=== PATIENT | male | born 1980 | race Caucasian/White ===

== ENCOUNTER 2025-01-25 11:04 | Emergency (ER) | payer BC, SELFPAY ==
[2025-01-25 11:09] VITALS: BP 124/87
[2025-01-25 11:27] LABS: Hematocrit 43.0 % (39.0-52.0); Hemoglobin 14.7 g/dL (13.0-18.0); Mean Corp Hgb Conc. 34.2 g/dL (33.0-37.0); Mean Corpuscular Volume 88.1 fL (80.0-94.0); Nucleated Red Blood Cells % 0 % (-); Platelet Count 260 10^3/uL (130-400); Red Cell Dist. Width 12.3 % (11.5-14.5)
[2025-01-25 11:41] LABS: ALT (SGPT) 21 U/L (0-50); AST (SGOT) 21 U/L (17-59); Albumin 4.9 g/dl (3.5-5.0); Alkaline Phosphatase 55 U/L (38-126); Blood Urea Nitrogen 16 mg/dl (9-20); Calcium 9.6 mg/dl (8.4-10.2); Carbon Dioxide 32 mmol/L (22-30); Chloride 97 mmol/L (98-107); Glucose 92 mg/dl (70-99); Potassium 4.1 mmol/L (3.5-5.1); Sodium 135 mmol/L (135-145); Total Protein 7.6 g/dl (6.3-8.2); eGFR > 60.00
[2025-01-25 12:05] LABS: Urine Character Clear (Clear)
--- NOTE | 2025-01-25 12:39 | ED.GENMED ---
History of Present Illness
General
Chief Complaint: Flank Pain
Source: patient
Exam Limitations: none
Time Seen by Provider: 01/25/25 12:34
History of Present Illness
History of Present Illness:
See MDM
Past History
Past History
ED Past Medical History: Other (Kidney stone)
ED Past Surgical History: None
Social History
Tobacco: Non-smoker
Alcohol: None
Drug: None
Personal:
Living: with family
Employment: Employed
Family History
Family History: Other (kidney stone)
Phy Exam
Physical Exam
Physical Exam:
See MDM
Course
Orders/Labs/Results
Orders:
Orders
01/25/25 11:17
Complete Blood Count/With Diff Urgent
Comprehensive Metabolic Panel Urgent
01/25/25 11:43
UA [Urinalysis] Urgent
Date Specimen was Collected: 01/25/25
Time Specimen was Collected: 11:42
01/25/25 12:39
CT Abd/pel Without Iv Or Oral Urgent
Comment:
Reason For Exam: R flank pain
Abnormal Lab Results
01/25/25
11:17
Chloride 97 L mmol/L
(98-107)
Carbon Dioxide 32 H mmol/L
(22-30)
01/25/25 11:17
01/25/25 11:17
Vital Signs
Initial and Last Documented VS:
Initial Vital Signs
Temp Pulse Resp BP Pulse Ox
98.1 F 78 18 124/87 97
01/25/25 11:09 01/25/25 11:09 01/25/25 11:09 01/25/25 11:09 01/25/25 11:09
Last Documented Vital Signs
Temp Pulse Resp BP Pulse Ox
98.1 F 78 18 124/87 97
01/25/25 11:09 01/25/25 11:09 01/25/25 11:09 01/25/25 11:01/25/25 12:41
MDM/Problems Addressed
Differential Diagnosis Includes:
Note:
CHIEF COMPLAINT(S)
Flank pain.
HISTORY OF PRESENT ILLNESS
The patient is a 44-year-old male presenting with flank pain. The patient reported the onset of pain occurring suddenly this morning, noting that prior to the onset, he felt relatively well. The pain became progressively noticeable throughout the
day, but he described it as less severe compared to previous episodes where he was 'doubled over.' No significant pressure was noted. He has a history of similar pain episodes before, which resolved without intervention. The patient denied any
nausea. No prior abdominal surgeries were reported.
PHYSICAL EXAM
General: Alert, no acute distress.
Skin: Warm, dry.
Head: Normocephalic, atraumatic
Neck: Appears supple, trachea midline.
Eyes, Ears, Nose, Mouth, and Throat: Moist mucous membranes
Cardiovascular: No signs of cyanosis
Respiratory: Respirations are non-labored.
Abdomen: Non-distended. No CVA tenderness noted
Musculoskeletal: No deformities
Neurological: No focal neurological deficit observed.
Psychiatric: Cooperative, appropriate mood and affect.
EXTERNAL RECORDS REVIEWED
The patients blood work and urinalysis were reviewed. The results were reportedly normal.
PLAN
The plan includes conducting a CT scan to evaluate the size and location of a suspected kidney stone and measure any associated swelling. Pain management will be considered based on the CT findings and patients self-reported pain levels. The
expectation is for resolution similar to previous episodes, without the need for surgical intervention.
DIFFERENTIAL DIAGNOSIS
The Differential Diagnosis includes, in no particular order and is not limited to:
- Nephrolithiasis (Kidney stone)
- Pyelonephritis
- Renal colic
- Urinary tract infection
- Musculoskeletal pain
- Appendicitis
- Abdominal aortic aneurysm
- Gastrointestinal obstruction
- Hepatic pathology
- Herpes zoster
SUMMARY OF ENCOUNTER
The patient was seen in the emergency department for evaluation of sudden onset flank pain, suspected to be due to a kidney stone, given the history of similar episodes. Initial blood work and urinalysis were normal, prompting the decision to
perform a CT scan to confirm the presence and details of the stone.
DISPOSITION
Discharge, pending results of the CT scan to confirm diagnosis and determine further pain management or intervention needed.
MEDICAL DECISION MAKING
- Complexity of Data Reviewed:
Chronic conditions affecting care including nephrolithiasis (suspected recurrent kidney stones).
- Data:
Category 1:
- Laboratory tests reviewed: Blood work and urine analysis results were normal.
Category 2:
- Input from patient regarding prior episodes indicating similar resolution without intervention.
- Risk:
Prescription medication management to be considered dependant on the outcome of CT imaging. No current significant social determinants affecting health were mentioned.
DIAGNOSIS
- Nephrolithiasis, suspected recurrent episode (ICD-10: N20.0)
- Flank pain (ICD-10: R10.9)
SUMMARY OF ENCOUNTER
The patient presented with acute right flank pain. Symptoms appeared to be improving during the visit, but he remained mildly uncomfortable. A CT scan was performed, which did not show any evidence of a blocked kidney stone. It was discussed with
the patient that he likely passed a kidney stone, explaining the improvement in his symptoms.
DISPOSITION
Discharge
ASSESSMENT
Suspected passage of a nephrolithiasis episode, as indicated by symptom improvement and CT findings showing no obstruction.
PLAN
Discharge the patient with home management, as symptoms are improving and CT findings are reassuring. Advise follow-up with primary care if symptoms recur or worsen.
INDEPENDENT REVIEW OF LABS AND INTERPRETATION OF TESTS
My independent interpretation of the CT scan shows no evidence of a blocked kidney stone.
PATIENT EDUCATION AND COUNSELING
Explained to the patient the likelihood of having passed a kidney stone, resulting in symptom improvement. Advised on signs of recurrence and when to seek further medical attention.
MEDICAL DECISION MAKING
- Complexity of Data Reviewed: Chronic conditions affecting care include nephrolithiasis (suspected recurrent kidney stones). Differential Diagnosis includes nephrolithiasis, pyelonephritis, renal colic, urinary tract infection, musculoskeletal
pain, appendicitis, abdominal aortic aneurysm, gastrointestinal obstruction, hepatic pathology, and herpes zoster.
- Data:
Category 1:
My independent interpretation of the CT scan indicates no evidence of a blocked kidney stone.
- Risk: Consideration of Admission/Observation: Escalation of care including admission/observation was considered given the complexity and risk of the patients presenting complaint, exam findings, and/or their underlying comorbidities. However,
ultimately, I feel the patient is safe for outpatient management with close follow-up. Reasoning: Work-up is reassuring, does not reveal any acute life/organ-threatening processes, patients symptoms well-controlled upon reevaluation, reexamination
is reassuring, vitals are stable, patient agreeable with discharge, reliable for follow-up.
DIAGNOSIS
Nephrolithiasis, suspected episode with spontaneous passage (ICD-10: N20.0)
*Pulse Oximetry
SaO2: 97
Oxygen Mode of Delivery: Room air
Patient hypoxic: no
*Critical Care Note
Total Time (30-74mins, 75-104mins- exclusive of procedures): Not Applicable
ED Attending Note
-
Portions of this chart may have been created with voice recognition software.� Occasional wrong word or��sound alike� substitutions may have occurred due to the inherent limitations of voice recognition software.
Discharge Plan
Departure
Patient Disposition: Home (Routine Discharge)
Date of Disposition: 01/25/25
Time of Disposition: 14:30
Patient with high blood pressure during this ER visit?: No
Discharge Problem:
Acute flank pain
Prescriptions:
No Action
oxycodone-acetaminophen 5 MG/325 MG tablet
1 tab PO Q6HPRN PRN (Reason: pain) Qty: 12 0RF
ondansetron 4 MG tablet,disintegrating
4 mg PO TIDPRN PRN (Reason: nausea) Qty: 12 0RF
tamsulosin 0.4 MG capsule
0.4 mg PO DAILY Qty: 7 0RF
hydrocodone-acetaminophen 1 TABLET tablet
1 tab PO Q4HPRN PRN (Reason: pain) Qty: 10 0RF
ibuprofen 600 MG tablet
600 mg PO Q6HPRN PRN (Reason: pain) Qty: 20 0RF
ondansetron 4 MG tablet,disintegrating
4 mg PO TIDPRN PRN (Reason: nausea/vomiting) Qty: 10 0RF
Referrals:
Ana Gallo MD [Family Provider, Family Practice]
Activity Restrictions/Additional Instructions:
Please return for any worsening symptoms.
You may return at any time if you have further concerns.
Please follow up with your doctor at the first available appointment, preferably this week.
As we discussed, you likely passed a kidney stone.
Thank you for choosing [facility].
Interventions
Interventions:
*Risk Screen - Suicide Last Done: 01/25/25 11:09
Discharge Date and Time
Print Language: AFGHAN
== END 2025-01-25 14:37 | disposition home or self-care (01) ==
LOC: EMR 11:04
PROVIDERS: EMERGENCY PHYSICIAN Student in an Organized Health Care Education/Training Program; FAMILY PHYSICIAN Family Medicine
DX: R10.A1 Flank pain, right side (principal); Z87.442 Personal history of urinary calculi
CPT/HCPCS: 99284; 74176; 80053; 81003; 85025